=== PATIENT | female | born 1985 | race Caucasian/White ===

== ENCOUNTER 2020-09-08 14:09 | Outpatient (CLI) | payer OTHER ==
[~2020-09-08] VITALS: Ht 162.6 cm; Wt 99.1 kg
[2020-09-08] MEDS ORDERED: TERBUTALINE 1 MG/ML, 1ML SQ ONE (15:00)
[2020-09-08 15:50] LABS: BASOPHILS % (AUTO) 0 % (0-1); EOSINOPHILS % (AUTO) 0 % (1-7); LYMPHOCYTES % (AUTO) 17 % (22-44); MEAN CORPUSCULAR HEMOGLOBIN 31.3 pg (27.0-34.8); MEAN CORPUSCULAR HGB CONC 34.1 g/dL (32.4-35.8); MEAN PLATELET VOLUME 9.9 fL (7.4-10.4); MONOCYTES % (AUTO) 7 % (2-9); NEUTROPHILS % (AUTO) 76 % (42-75); PLATELET COUNT 181 x10^3/uL (130-400); RED BLOOD COUNT 4.11 x10^6/uL (3.82-5.3); RED CELL DISTRIBUTION WIDTH 13.9 % (9.6-15.2)
[2020-09-08] MEDS ORDERED: PREN1TAB60 PO (17:19)
[2020-09-08] MEDS ORDERED: LACTATED RINGERS 1,000 ML IV SCH (18:00)
[2020-09-08] MEDS ORDERED: SODIUM CHLORIDE FLUSH 3ML SYRINGE IVF SCH (21:00)
[2020-09-25] MEDS ORDERED: IBUP-1222 PO (17:03)
[2020-09-25] MEDS ORDERED: DOCU-131 PO (17:03)
[2020-09-25] MEDS ORDERED: OXYC1TAB14 PO (17:03)
== END 2020-09-08 17:33 | disposition home or self-care (01) ==
LOC: LDOP 14:09
PROVIDERS: ATTEND Obstetrics & Gynecology Maternal & Fetal Medicine
DX: O32.1XX1 Maternal care for breech presentation, fetus 1 (principal); O40.3XX0 Polyhydramnios, third trimester, not applicable or unspecified; Z3A.37 37 weeks gestation of pregnancy
CPT/HCPCS: 36415; 59025; 59412; 85025; 86850; 86900; 96360; 96361; 96372; J3105; J7120